=== PATIENT | female | born 1955 | race Caucasian/White ===

== ENCOUNTER 2020-04-13 22:27 | Emergency (ER) | payer MEDICARE, MEDICAID ==
[~2020-04-13] VITALS: Ht 157.5 cm; Wt 82.0 kg
[~2020-04-13 22:27] MED LIST: ALBU18HF2 IH; AMLO5TAB88 PO; ASPI-1079 PO; DOXE10CA2 PO; LEVO100T9 PO; LISI40TA4 PO; METO-539 PO; PANT40TA4 PO; SIMV-46 PO; TEMA15CA PO
[2020-04-13] MEDS ORDERED: MECLIZINE 25MG TABLET PO ONE (23:30)
[2020-04-13 23:56] LABS: BASOPHILS % 0.8 % (0.0-2.0); EOSINOPHILS % 1.3 % (0.0-5.0); HEMATOCRIT. 35.6 % (36.0-48.0); HEMOGLOBIN. 11.5 g/dL (12.0-16.0); LYMPHOCYTES % 13.7 % (20.0-50.0); MEAN CORPUSCULAR HEMOGLOBIN 26.1 pg (28.0-32.0); MEAN PLATELET VOLUME 8.6 fl (7.4-10.4); MONOCYTES % 5.4 % (2.0-8.0); NEUTROPHILS % 78.8 % (40.0-76.0); PLATELET 196 x1000/uL (130-400); RED BLOOD CELL COUNT 4.39 mill/uL (4.2-5.4); RED CELL DISTRIBUTION WIDTH 17.3 % (11.6-14.6)
[2020-04-14 00:02] LABS: CHLORIDE 108 mEq/L (98-107)
[2020-04-14 02:52] VITALS: BP 124/51
== END 2020-04-14 02:56 | disposition home or self-care (01) ==
LOC: ER 22:34
DX: H81.10 Benign paroxysmal vertigo, unspecified ear (principal); R03.0 Elevated blood-pressure reading, without diagnosis of hypertension
CPT/HCPCS: 36415; 80053; 85025; 93005; 99284; J8597

== ENCOUNTER 2020-12-08 22:46 | Emergency (ER) | payer MEDICARE, MEDICAID ==
[~2020-12-08] VITALS: Ht 157.5 cm; Wt 76.0 kg
[~2020-12-08 22:46] MED LIST changes: +LISI40TA13 PO; -LISI40TA4 PO; -PANT40TA4 PO; +PANT40TA51 PO
[2020-12-09] MEDS ORDERED: MECLIZINE 25MG TABLET PO ONE (00:15)
[2020-12-09] MEDS ORDERED: ONDANSETRON 4MG ODT PO ONE (00:30)
[2020-12-09 01:50] VITALS: BP 152/60
[2020-12-09] MEDS ORDERED: MECL-159 MT (01:50)
== END 2020-12-09 02:08 | disposition home or self-care (01) ==
LOC: ER 22:46
DX: R42 Dizziness and giddiness (principal); R11.2 Nausea with vomiting, unspecified; E78.00 Pure hypercholesterolemia, unspecified; I10 Essential (primary) hypertension; Z79.899 Other long term (current) drug therapy; Z79.82 Long term (current) use of aspirin
CPT/HCPCS: 99283; J8597; Q0162